=== PATIENT | male | born 1965 | race Caucasian/White ===

== ENCOUNTER 2018-10-19 16:19 | Emergency (ER) | payer MEDICARE, MEDICAID ==
[2018-10-19] MEDS ORDERED: Ketorolac 60 MG/2 ML SDV IM ONE (16:28)
--- NOTE | 2018-10-19 16:35 | EDM.PDOC ---
ED HPI GENERAL MEDICAL PROBLEM - General Chief Complaint: Back Pain or Injury Stated Complaint: LEFT SHOULDER Time Seen by Provider: 10/19/18 16:27 Source of Information: Reports: Patient History Limitations: Reports: No Limitations - History of Present Illness INITIAL COMMENTS - FREE TEXT/NARRATIVE: This patient is a 53 year old male that presents to the ER. Patient reports that 3 weeks ago from this past Saturday he was lifting a pot of coffee when he had pain to the left shoulder. Patient reports over the past 3 weeks the pain has not gotten better. He reports it feels like a burning pain. He reports the pain is in left shoulder and left scapula area. Patient reports it feels better to hold his arm in an arm sling position. He reports that pain is worse with ROM. Patient denies cp, soa, abd pain, nausea. Pain easily manipulated with movement and palpation. Pulses +2, cap refill < 2sec, sensory/motor function intact, neurovascular intact. Onset Date: 09/26/18 Duration: Week(s): (3 weeks, 2 days), Other (just not getting better) Location: Reports: Upper Extremity, Left Quality: Reports: Burning Severity: Mild Improves with: Reports: Immobilization Worsens with: Reports: Movement Context: Reports: Lifting Associated Symptoms: Denies: Confusion, Chest Pain, Cough, cough w sputum, Diaphoresis, Fever/Chills, Headaches, Loss of Appetite, Malaise, Nausea/Vomiting , Rash, Seizure, Shortness of Breath, Syncope, Weakness Treatments HEARING THERAPY TEACHER: Reports: Other (see below) Other Treatments HEARING THERAPY TEACHER: HYDRO AND TRAM Left Shoulder Pain Score (Numeric/FACES): 8 - Related Data Allergies Allergy/AdvReac Type Severity Reaction Status Date / Time No Known Allergies Allergy Verified 10/19/18 16:31 Home Meds: Home Meds metFORMIN HCl [Metformin HCl] 1,000 mg PO BID 08/01/15 [History] Cyclobenzaprine [Flexeril] 10 mg PO TID 10/19/18 [History] Fenofibrate 54 mg PO DAILY 10/19/18 [History] Gabapentin [Neurontin] 900 mg PO TID 10/19/18 [History] Hydrocodone/Acetaminophen [Hydrocodon-Acetaminoph 7.5-325] 7.5 mg PO Q6HR [History] Insuln Asp Prot/Insulin Aspart [NovoLOG Mix 70-30] 36 units SUBCUT ACBREAKFAST 10/19/18 [History] Simvastatin 80 mg PO BEDTIME 10/19/18 [History] traMADol HCl [Tramadol HCl] 100 mg PO Q6HR 10/19/18 [History] traZODone HCl [Trazodone HCl] 50 mg PO BEDTIME 10/19/18 [History] Review of Systems - Review of Systems Review Of Systems: See Below Constitutional: Reports: No Symptoms Eyes: Reports: No Symptoms Ears: Reports: No Symptoms Nose: Reports: No Symptoms Mouth/Throat: Reports: No Symptoms Respiratory: Reports: No Symptoms Cardiovascular: Reports: No Symptoms GI/Abdominal: Reports: No Symptoms Genitourinary: Reports: No Symptoms Musculoskeletal: Reports: Shoulder Pain (left) Skin: Reports: No Symptoms Neurological: Reports: No Symptoms Psychiatric: Reports: No Symptoms ED EXAM, GENERAL - Physical Exam Exam: See Below Exam Limited By: No Limitations General Appearance: Alert, WD/WN, No Apparent Distress Head: Atraumatic, Normocephalic Neck: Normal Inspection, Supple, Non-Tender, Full Range of Motion Respiratory/Chest: No Respiratory Distress, Lungs Clear, Normal Breath Sounds, No Accessory Muscle Use, Chest Non-Tender Cardiovascular: Normal Peripheral Pulses, Regular Rate, Rhythm, No Edema, No Gallop, No JVD, No Murmur, No Rub Peripheral Pulses: 2+: Radial (L), Radial (R) Back Exam: Normal Inspection, Full Range of Motion. No: CVA Tenderness (L), CVA Tenderness (R), Decreased Range of Motion, Muscle Spasm, Paraspinal Tenderness, Vertebral Tenderness Extremities: Normal Inspection, Normal Range of Motion, No Pedal Edema, Normal Capillary Refill, Other (Left anterior/posterior shoulder pain, tenderness. Left mid and superior scapular pain, tenderness mild. Pain is easily manipulated with abduction, adduction of the left shoulder and full ROM. ROM intact, but with pain. Patient describes as burning pain. ). No: Pedal Edema, Arm Pain Neurological: Alert, Oriented, Normal Cognition, Normal Gait, Normal Reflexes, No Motor/Sensory Deficits Psychiatric: Normal Affect, Normal Mood Skin Exam: Warm, Dry, Intact, Normal Color, No Rash Course - Vital Signs Last Recorded V/S: Last Vital Signs Temp 97.4 F 07/21/19 16:22 Pulse 95 10/19/18 16:22 Resp 18 10/19/18 16:22 BP 148/89 H 10/19/18 16:22 Pulse Ox 100 10/19/18 16:22 - Orders/Labs/Meds Orders: Active Orders 24 hr Category Date Time Status Shoulder Comp Lt [CR] Stat Exams 10/19/18 16:28 Ordered Meds: Medications Discontinued Medications Generic Name Dose Route Start Last Admin Trade Name Sandro PRN Reason Stop Dose Admin Ketorolac Tromethamine 60 mg 10/19/18 16:28 Toradol IM 10/19/18 16:29 ONETIME ONE - Re-Assessments/Exams Free Text/Narrative Re-Assessment/Exam: 10/19/18 16:45 left shoulder xray: by me, no fx or dislocation. Departure - Departure Time of Disposition: 16:45 Disposition: Home, Self-Care 01 Condition: Good Clinical Impression: Left shoulder strain Qualifiers: Encounter type: initial encounter Qualified Code(s): S46.912A - Strain of unspecified muscle, fascia and tendon at shoulder and upper arm level, left arm , initial encounter - Discharge Information *PRESCRIPTION DRUG MONITORING PROGRAM REVIEWED*: Not Applicable *COPY OF PRESCRIPTION DRUG MONITORING REPORT IN PATIENT TARYN: Not Applicable Instructions: Muscle Strain, [id number] Forms: ED Department Discharge Additional Instructions: Followup with your primary care provider Return to the ER for worsening of condition or any emergent concerns Rest Ice Elevate Sling as needed for comfort Motrin as needed for pain - My Orders Last 24 Hours: My Active Orders 10/19/18 16:28 Shoulder Comp Lt [CR] Stat - Assessment/Plan Last 24 Hours: My Active Orders 10/19/18 16:28 Shoulder Comp Lt [CR] Stat Plan: PLEASE SEE RN NOTE FOR PFSH. Patient reports he is under pain medication contract. Have ordered Toradol.
== END 2018-10-19 17:25 | disposition home or self-care (01) ==
LOC: CC.ED 16:19
DX: S46.912A Strain of unspecified muscle, fascia and tendon at shoulder and upper arm level, left arm, initial encounter (principal); Z79.899 Other long term (current) drug therapy; Z79.4 Long term (current) use of insulin; X50.0XXA Overexertion from strenuous movement or load, initial encounter
CPT/HCPCS: 73030; 96372; 99283; J1885